=== PATIENT | male | born 1980 | race Caucasian/White ===

== ENCOUNTER 2019-09-09 10:43 | Emergency (ER) | payer OTHER, SELFPAY ==
[~2019-09-09] VITALS: Ht 172.7 cm; Wt 88.5 kg
[2019-09-09 10:48] VITALS: BP 154/88
--- NOTE | 2019-09-09 10:50 | NUR ---
Note kiel in EDM - 09/09/19 at 1111 by [email or web address] C/O FEVER,GUTIERREZ, BODY ACHE 8/10X 3 DAYS. TEMP 97.2 AT THIS TIME. TOOK TYLENOL AT 4 AM TODAY. MED HX: JANINE
--- NOTE | 2019-09-09 10:51 | NUR ---
C/O FEVER,GUTIERREZ, BODY ACHE 8/10X 3 DAYS. TEMP 97.2 AT THIS TIME. TOOK TYLENOL AT 4 AM TODAY. MED HX: DENIES
--- NOTE | 2019-09-09 10:52 | NUR ---
WAIT AT TENT.
--- NOTE | 2019-09-09 11:00 | NUR ---
COVID SWAB DONE.
[2019-09-09 11:11] VITALS: BP 154/88
== END 2019-09-09 11:11 | disposition home or self-care (01) ==
LOC: EEVIPCON 10:43 → MED 10:43 → EDSEX 10:43 → MED 11:11
DX: R50.9 Fever, unspecified (principal); Z20.828 Contact with and (suspected) exposure to other viral communicable diseases
CPT/HCPCS: 99283; C9803; U0003; 36415

== ENCOUNTER 2019-10-05 10:05 | Emergency (ER) | payer OTHER, SELFPAY ==
[~2019-10-05] VITALS: Ht 170.2 cm; Wt 88.5 kg
[2019-10-05 10:14] VITALS: BP 140/100
[2019-10-05 11:33] VITALS: BP 138/90
== END 2019-10-05 11:33 | disposition home or self-care (01) ==
LOC: MED 10:05
DX: J32.9 Chronic sinusitis, unspecified (principal); R50.9 Fever, unspecified
CPT/HCPCS: 99283

== ENCOUNTER 2019-10-08 09:21 | Emergency (ER) | payer OTHER, SELFPAY ==
--- NOTE | 2019-10-08 09:24 | NUR ---
placed into overflow tent.
--- NOTE | 2019-10-08 09:29 | NUR ---
pt left before triage.
== END 2019-10-08 09:27 | disposition left against medical advice (07) ==
LOC: MED 09:21
DX: Z53.21 Procedure and treatment not carried out due to patient leaving prior to being seen by health care provider (principal)

== ENCOUNTER 2019-10-16 22:32 | Emergency (ER) | payer OTHER, SELFPAY ==
[~2019-10-16] VITALS: Ht 172.7 cm; Wt 97.5 kg
[2019-10-16 22:46] VITALS: BP 145/83
--- NOTE | 2019-10-16 22:53 | NUR ---
PT AMBULATED TO LOBBY TO A/W BED. VSS
--- NOTE | 2019-10-16 23:23 | NUR ---
39M PRESENTS TO ED WITH C/O ANXIETY S/P READING HIS BP AND HEART RATE AT HOME TO BE HIGH. UPON ASSESSMENT, PT A/O X4, GCS 15. PERRLA. DENIES HEADACHE/BLURRY VISION. CBL SOUNDS, RR EVEN AND UNLABORED. DENIES SOB/COUGH. ABDOMEN SOFT AND NON TENDER. BOWEL SOUNDS NORMOACTIVE. DENIES N/V/D. AMBULATORY. DENIES ANY INJURY OR TRAUMA. PMHX: HLD, HTN, DM NKA
[2019-10-16 23:28] VITALS: BP 145/83
--- NOTE | 2019-10-17 00:02 | NUR ---
[facility] AT BEDSIDE.
--- NOTE | 2019-10-17 00:18 | NUR ---
PT DISCHARGED BY [facility] [place].
== END 2019-10-17 00:18 | disposition home or self-care (01) ==
LOC: MED 22:32
DX: F41.9 Anxiety disorder, unspecified (principal); R06.4 Hyperventilation; E11.9 Type 2 diabetes mellitus without complications; I10 Essential (primary) hypertension
CPT/HCPCS: 99281

== ENCOUNTER 2019-11-03 20:07 | Emergency (ER) | payer OTHER ==
[~2019-11-03] VITALS: Ht 172.7 cm; Wt 92.1 kg
[2019-11-03 20:35] VITALS: BP 142/82
[2019-11-03 21:35] VITALS: BP 150/62
== END 2019-11-03 21:35 | disposition home or self-care (01) ==
LOC: MED 20:07
DX: J32.9 Chronic sinusitis, unspecified (principal); I10 Essential (primary) hypertension
CPT/HCPCS: 99282